=== PATIENT | male | born 1930 | race Caucasian/White ===

== ENCOUNTER 2016-08-31 10:22 | Day surgery (SDC) | payer MEDICARE ==
--- NOTE | ~2016-08-31 | EGD ---
EGD REPORT [facility] [address] [place] [address] NAME: JUDITH GOLD : [birth year] STATUS : REG [facility]#: [id number] AGE: 86 ADM/REG DATE : 08/31/16 MR#: [id number] REPORT SERV DATE: 08/31/16 DICTATED BY: CARLOS PINEDA DATE: 08/31/16 REPORT STATUS : Draft TRANSCRIBED BY: [facility] DATE: 08/31/16 [facility] Center Patient Name: Judith Gold Date of : 1930 Attending MD: CARLOS PINEDA MD Procedure Date No Time: 08/31/2016 Procedure: Colonoscopy Indications: Screening in patient at increased risk: Colorectal cancer in mother 60 or older, Last colonoscopy: April 2011 Referring MD: Viktor Vera Medicines: Propofol per Anesthesia Complications: No immediate complications. Estimated blood loss: None. Procedure: Pre-Anesthesia Assessment: - After reviewing the risks and benefits, the patient was deemed in satisfactory condition to undergo the procedure. - Prior to the procedure, a History and Physical was performed, and patient medications and allergies were reviewed. The patient's tolerance of previous anesthesia was also reviewed. The risks and benefits of the procedure and the sedation options and risks were discussed with the patient. All questions were answered, and informed consent was obtained. Prior Anticoagulants: The patient has taken no previous anticoagulant or antiplatelet agents. ASA Grade Assessment: II - A patient with mild systemic disease. After reviewing the risks and benefits, the patient was deemed in satisfactory condition to undergo the procedure. After I obtained informed consent, the scope was passed under direct vision. Throughout the procedure, the patient's blood pressure, pulse, and oxygen saturations were monitored continuously. The CF [id number] was introduced through the anus and advanced to the cecum, identified by appendiceal orifice and ileocecal valve. The colonoscopy was performed with difficulty due to significant looping, a tortuous colon and the patient's body habitus. Successful completion of the procedure was aided by straightening and shortening the scope to obtain bowel loop reduction and applying abdominal pressure. The ileocecal valve and appendiceal orifice were photographed. The patient tolerated the procedure well. The quality of the bowel preparation was adequate. The bowel preparation used was split lauren SUPREP. Scope EGD REPORT [id number] [place]. [address] NAME: JUDITH GOLD : [birth year] STATUS : REG [facility]#: [id number] AGE: 86 ADM/REG DATE : 08/31/16 MR#: [id number] REPORT SERV DATE: 08/31/16 DICTATED BY: CARLOS PINEDA DATE: 08/31/16 REPORT STATUS : Draft TRANSCRIBED BY: [employer] DATE: 08/31/16 withdrawal time was greater than 7 minutes. Findings: The perianal and digital rectal examinations were normal. Pertinent negatives include normal sphincter tone. Non-bleeding internal hemorrhoids were found during retroflexion and were small and Grade I (internal hemorrhoids that do not prolapse). Multiple small and large-mouthed diverticula were found in the sigmoid colon. A sessile polyp was found in the transverse colon. The polyp was 8 mm in size. The polyp was removed with a hot snare. Resection and retrieval were complete. Estimated blood loss: none. The exam was otherwise without abnormality. Impression: - Non-bleeding internal hemorrhoids. - Severe diverticulosis in the sigmoid colon. - One 8 mm polyp in the transverse colon. Resected and retrieved. - The examination was otherwise normal. Recommendation: - Discharge patient to home (ambulatory). - High fiber diet indefinitely. - Continue present medications. - Await pathology results. - No further routine screening or surveillance colonoscopy due to advanced age. - Return to GI clinic PRN. - Patient has a contact number available for emergencies. The signs and symptoms of potential delayed complications were discussed with the patient. Return to normal activities tomorrow. Written discharge instructions were provided to the patient. Procedure Code(s): --- Professional --- 62124, Colonoscopy, flexible, proximal to splenic flexure; with removal of tumor(s), polyp(s), or other lesion(s) by snare technique Diagnosis Code(s): --- Professional --- K64.0, First degree hemorrhoids K57.30, Diverticulosis of large intestine without perforation or abscess without bleeding D12.3, Benign neoplasm of transverse colon Z12.11, Encounter for screening for malignant neoplasm of colon Z80.0, Family history of malignant neoplasm of digestive organs EGD REPORT [facility] [address] [place]. [address] NAME: JUDITH GOLD : [birth year] STATUS : REG [facility] PAT#: [id number] AGE: 86 ADM/REG DATE : 08/31/16 MR#: [id number] REPORT SERV DATE: 08/31/16 DICTATED BY: CARLOS PINEDA. DATE: 08/31/16 REPORT STATUS : Draft TRANSCRIBED BY: [employer] DATE: 08/31/16 CPT copyright 2013 [employer]. All rights reserved. The codes documented in this report are preliminary and upon manager studio review may be revised to meet current compliance requirements. CARLOS PINEDA MD 08/31/2016 12:06 PM This report has been signed electronically. Number of Addenda: 0 Note Initiated On: 08/31/2016 10:42 AM Scope Withdrawal Time 0 hours 7 minutes 43 seconds [address] [place] [address]
[~2016-08-31 10:22] MED LIST: ASAB PO; DRAMAMINE25 MG PO; FLEX PO; HYT5 PO; LIPITOR10 PO; MOBIC15 MG PO; MULTIPLE VIT PO; NORV10 PO; X25 PO
== END 2016-08-31 23:59 | disposition home or self-care (01) ==
LOC: DMU 10:22
PROVIDERS: Internal Medicine Gastroenterology
PROC: 0DBL8ZZ Excision of Transverse Colon, Via Natural or Artificial Opening Endoscopic (ICD-10-PCS; principal; 2016-08-31 11:45)
DX: Z12.11 Encounter for screening for malignant neoplasm of colon (principal); D12.3 Benign neoplasm of transverse colon; K64.0 First degree hemorrhoids; K57.30 Diverticulosis of large intestine without perforation or abscess without bleeding; I10 Essential (primary) hypertension; I25.10 Atherosclerotic heart disease of native coronary artery without angina pectoris; Z80.0 Family history of malignant neoplasm of digestive organs; Z95.1 Presence of aortocoronary bypass graft; Z79.899 Other long term (current) drug therapy
CPT/HCPCS: 88305